=== PATIENT | male | born 1960 | race Caucasian/White ===

== ENCOUNTER 2017-02-09 05:36 | Inpatient (IN) | payer OTHER ==
[2017-01-24 12:07] VITALS: BMI 47.0
--- NOTE | 2017-01-24 12:45 | PAT Medication Instructions ---
Service Date Jan 24, 2017. Current Home Medication List Ascorbic Acid (Vitamin C), 500 MG PO BID Aspirin (Aspirin Ec), 81 MG PO QAM Bisacodyl (Dulcolax), 2 TAB PO QAM Bisacodyl (Dulcolax), 1 TAB PO HS Cholecalciferol (Vitamin D3), 1 TAB PO QAM Clonidine Hcl (Catapres), 1 TAB PO BID Cyanocobalamin (Vitamin B12 500MCG), 1,000 MCG PO QAM Cyclobenzaprine Hcl (Flexeril), 5 MG PO TID Gabapentin (Neurontin), 600 MG PO BID Levothyroxine Sodium (Levothyroxine Sodium), 1 TAB PO QAM Meclizine HCl (Meclizine 25), 25 MG PO QAM Meloxicam (Mobic), 15 MG PO QAM Metformin Hcl (Glucophage), 1,000 MG PO BID Omeprazole (Prilosec), 20 MG PO QAM Oxycodone/Acetaminophen 10MG/325MG (Percocet 10MG/325MG), 1 TAB PO Q4H PRN for N Pyridoxine (Vitamin B6), 200 MG PO QAM Sennosides-Docusate Sodium (Stool Softener), 2 TAB PO HS Zolpidem Tartrate (Zolpidem Tartrate), 1 TAB PO HS [Ferrous], 65 MG PO BID Medication Instructions For Your Scheduled Surgery Meloxicam (Mobic), 15 MG PO QAM (patient will check with surgeon for instructions) Aspirin (Aspirin Ec), 81 MG PO QAM (patient will check with surgeon for instructions) - Hold the following medications 48 hours prior to surgery: Metformin Hcl (Glucophage), 1,000 MG PO BID - Hold the following medications the morning of surgery: Ferrous 65 MG PO BID Pyridoxine (Vitamin B6), 200 MG PO QAM Cyclobenzaprine Hcl (Flexeril), 5 MG PO TID Cyanocobalamin (Vitamin B12 500MCG), 1,000 MCG PO QAM Cholecalciferol (Vitamin D3), 1 TAB PO QAM Bisacodyl (Dulcolax), 2 TAB PO QAM Ascorbic Acid (Vitamin C), 500 MG PO BID - Take the following medications the morning of surgery with a sip of water: Oxycodone/Acetaminophen 10MG/325MG (Percocet 10MG/325MG), 1 TAB PO Q4H PRN ( can take up to four hours prior to surgery if needed) Omeprazole (Prilosec), 20 MG PO QAM Levothyroxine Sodium (Levothyroxine Sodium), 1 TAB PO QAM Gabapentin (Neurontin), 600 MG PO BID Meclizine HCl (Meclizine 25), 25 MG PO QAM - Take the following medications as scheduled the night before surgery: Ferrous 65 MG PO BID Zolpidem Tartrate (Zolpidem Tartrate), 1 TAB PO HS Sennosides-Docusate Sodium (Stool Softener), 2 TAB PO HS Oxycodone/Acetaminophen 10MG/325MG (Percocet 10MG/325MG), 1 TAB PO Q4H PRN for N Gabapentin (Neurontin), 600 MG PO BID Cyclobenzaprine Hcl (Flexeril), 5 MG PO TID Clonidine Hcl (Catapres), 1 TAB PO BID (suppertime and bedtime) Bisacodyl (Dulcolax), 1 TAB PO HS Ascorbic Acid (Vitamin C), 500 MG PO BID If you have any questions please call us at [phone] or [phone] ( [place]) or [phone]
[2017-01-24 13:19] LABS: URINE APPEARANCE CLEAR (CLEAR); URINE BILIRUBIN NEG (NEG); URINE COLOR YELLOW; URINE NITRITE NEG (NEG); URINE SPECIFIC GRAVITY 1.008 (1.000-1.030); UROBILINOGEN NEG (NEG)
[2017-01-24 13:20] LABS: MANUAL MICROSCOPIC REQUIRED? NO; REVIEW REQ? NO
[2017-01-24 15:21] LABS: BUN/CREATININE RATIO 14.2 (10-20); CREATININE 1.3 mg/dl (0.60-1.40); POTASSIUM 5.1 mmol/L (3.5-5.1)
--- NOTE | 2017-01-24 15:42 | DIAGNOSTIC IMAGING REPORT ---
CHEST PREADMISSION(PA/LAT) HISTORY: Preop. COMPARISON: None. FINDINGS: The lungs are clear. Cardiac silhouette is normal in size. No pleural effusions. No pneumothorax. Low lung volumes. IMPRESSION: No acute process. Electronically signed by: Salinas Campa M.D. 01/24/2017 3:40 PM Dictated Date/Time: 01/24/2017 3:38 PM
--- NOTE | 2017-02-08 10:23 | HISTORY & PHYSICAL EXAMINATION ---
DATE OF ADMISSION: 02/09/2017 HISTORY OF PRESENT ILLNESS: The patient presents to our office with complaint of chronic back and left leg pain. It has been ongoing for 2 to 2-1/2 years. In involves the left buttock, posterior thigh to the level of the knee. Right leg is asymptomatic. He does have diabetic neuropathy from the knees distal and is on gabapentin for this. His back and left leg pain is reproducible when lying down or standing 3-4 minutes or longer. He is constantly changing positions. He is also comfortable in a recliner. He reports sitting also alleviates his symptoms. Denies changes in balance. Denies bowel or bladder dysfunction. He has trialed physical therapy without relief. He has seen Dr. Soriano but no injections were given due to the degree of his stenosis. He takes Percocet 10/325, 4 tabs a day plus Neurontin 600 mg t.i.d. plus Flexeril 5 mg a day for pain control. He also takes Mobic 15 mg a day. PAST MEDICAL HISTORY: The patient's medical history is significant for arthritis, GERD, diabetes, obesity. PAST SURGICAL HISTORY: Significant for left knee arthroscopy and gastric bypass. ALLERGIES: No known drug allergies. MEDICATIONS: Include metformin HCL 1000 mg twice a day, hydrocodone 10/325 every 4 hours, Neurontin 600 mg b.i.d., doxazosin 4 mg a day, Ambien 10 mg at bedtime, omeprazole 20 mg day, Flexeril 5 mg t.i.d., aspirin 81 mg a day, Mobic 15 mg a day, vitamin D3 1000 units twice a day, iron 325 mg t.i.d., vitamin C 500 mg t.i.d., vitamin B6 200 mg a day, vitamin B12 200 mg a day. SOCIAL HISTORY: He is on disability. He is . Denies alcohol use. Denies tobacco use. FAMILY HISTORY: Significant for arthritis, cardiovascular disease, diabetes. REVIEW OF SYSTEMS: Significant for back pain, left leg pain. PHYSICAL EXAMINATION: VITAL SIGNS: 5 feet 11, 340 pounds. HEAD, EYES, EARS, NOSE, AND THROAT: Speech appropriate. CARDIOPULMONARY: No gross abnormalities. ABDOMEN: Soft and nondistended. GENITOURINARY: Deferred. NEUROLOGIC: Cranial nerves II-XII grossly intact. MUSCULOSKELETAL: He ambulates with a widened but independent gait. He is nontender to palpation about the thoracolumbar spine. Strength is intact bilateral lower extremities. ASSESSMENT: Severe neural foraminal stenosis L3-L4, L4-L5, L5-S1 bilaterally. Severe central stenosis at L2-L3 with facet hypertrophy. PLAN: At this point in time, we have reviewed surgical intervention which would require lumbar decompression with instrumented fusion L2-L3, L3-L4, L4-L5 and L5-L1 with possible iliac bolts. We will have him see his family physician, Dr. Mayorga, preoperatively. He would like to proceed with the above-mentioned surgical planning.
[~2017-02-09] VITALS: Ht 180.3 cm; Wt 152.9 kg
[2017-02-09] VITALS (8 sets, daily range): BP systolic 122–160; BP diastolic 73–96; PULSE 96–125; TEMP 36.2–37.4; O2SAT 91–100; Ht 180.3 cm; Wt 152.9 kg
[~2017-02-09 05:36] MED LIST: ASCO1CAP3 PO; ASPI81TA28 PO; BISA-16 PO; CHOL20007 PO; CLON0.1T12 PO; CYAN500T13 PO; CYCL5TAB PO; FERROUS PO; GABA-113 PO; LEVO25TA5 PO; MECL-91 PO; MELO7.5T5 PO; METF-384 PO; OXYC-106 PO; PRLSR20 PO; PYRI100T4 PO; SENNTAB23 PO; ZOLP10TA6 PO
[2017-02-09] MEDS ORDERED: LACTATED RINGER'S 1000ML 1,000 ML IV SCH (06:00)
[2017-02-09] MEDS ORDERED: CEFAZOLIN 3000 MG/65 ML D5W IV SCH (06:00)
[2017-02-09] MEDS ORDERED: MIDAZOLAM HCL 1 MG/ML 2ML VIAL ONE (06:39)
[2017-02-09] MEDS ORDERED: FENTANYL CITRATE INJ 50 MCG/1 ML 2 ML VIAL ONE ×4 (06:39→11:06)
[2017-02-09] MEDS ORDERED: ATROPINE SULFATE 0.1 MG/ML 5ML SYR IV PRN (07:00)
[2017-02-09] MEDS ORDERED: EpHEDrine SULFATE INJ 50 MG/ML AMP IV PRN (07:00)
[2017-02-09] MEDS ORDERED: ONDANSETRON INJ 2 MG/ML 2 ML VIAL IV PRN ×2 (07:00→11:15)
[2017-02-09] MEDS ORDERED: SODIUM CHLORIDE 0.9% PF 50 ML VIAL ONE (07:17)
[2017-02-09] MEDS ORDERED: BACITRACIN 50000 UNIT VIAL ONE (07:17)
[2017-02-09] MEDS ORDERED: BUPIVACAINE/EPINEPHRINE 0.5% MPF 1:200,000 30 ML VIAL ONE (07:17)
--- NOTE | 2017-02-09 07:27 | History & Physical Bridge Note ---
H&P Re-Evaluation Bridge Note: I have examined the patient, reviewed the History & Physical and in the interval since the performance of the History & Physical I have noted the following changes of clinical significance: No changes noted
--- NOTE | 2017-02-09 07:32 | History & Physical Bridge Note ---
H&P Re-Evaluation Bridge Note: I have examined the patient, reviewed the History & Physical and in the interval since the performance of the History & Physical I have noted the following changes of clinical significance: No changes noted L2-S1 decompression fusion
[2017-02-09] MEDS ORDERED: CEFAZOLIN SOD 1 GM VIAL ONE (08:04)
[2017-02-09] MEDS ORDERED: THROMBIN FOR SOLN 20000 UNIT KIT ONE (08:13)
[2017-02-09] MEDS ORDERED: HYDROmorphone INJ 2 MG/ML SYR/VIAL ONE ×3 (08:14→11:22)
[2017-02-09] MEDS ORDERED: ALBUMIN HUMAN 5% 12.5 GM/250 ML VIAL IV ONE (09:40)
[2017-02-09] MEDS ORDERED: FLOSEAL HEMOSTATIC MATRIX 10ML TOP ONE (10:50)
[2017-02-09] MEDS ORDERED: SODIUM CHLORIDE 0.9% 1000ML 1,000 ML IV SCH (11:05)
--- NOTE | 2017-02-09 11:05 | [facility] Operative Report ---
Operative Report Operative Date Feb 09, 2017. Pre-Operative Diagnosis Severe neural foraminal stenosis L3-L4, L4-L5, L5-S1 bilaterally. Severe central stenosis at L2-L3 with facet hypertrophy. Post-Operative Diagnosis same Procedure(s) Performed domp fusion Surgeon Dr. Hernandez Hose Turner Surgeon(s) RACHAEL Bowers Estimated Blood Loss 1200 Findings stenosis Specimens none per surgeon I attest to the content of the Intraoperative Record and any orders documented therein. Any exceptions are noted below.
[2017-02-09] MEDS ORDERED: ROCURONIUM BROMIDE 10 MG/ML 5 ML VIAL ONE (11:14)
[2017-02-09] MEDS ORDERED: PROPOFOL IV EMULSION 10 MG/ML 20 ML VIAL IV ONE (11:14)
[2017-02-09] MEDS ORDERED: LIDOCAINE HCL 2% 2 ML VIAL (20MG/ML) ONE (11:14)
[2017-02-09] MEDS ORDERED: ONDANSETRON INJ 2 MG/ML 2 ML VIAL ONE ×2 (11:14→11:28)
[2017-02-09] MEDS ORDERED: DEXAMETHASONE SOD INJ 4 MG/ML VIAL ONE (11:14)
[2017-02-09 11:15] LABS: HEMATOCRIT 30.5 % (42-52)
[2017-02-09] MEDS ORDERED: MAGNESIUM HYDROXIDE SUSP 30 ML UDC PO PRN (11:15)
[2017-02-09] MEDS ORDERED: DO NOT ADMINISTER PNEUMOCOCCAL VACCINE PRN ×2 (11:15)
[2017-02-09] MEDS ORDERED: FAMOTIDINE 20 MG TAB PO PRN (11:15)
[2017-02-09] MEDS ORDERED: DO NOT ADMINISTER FLU VACCINE PRN ×3 (11:15)
[2017-02-09] MEDS ORDERED: ACETAMINOPHEN 500 MG TAB PO PRN (11:15)
[2017-02-09] MEDS ORDERED: hydrOXYzine HCL 25 MG TAB PO PRN (11:15)
[2017-02-09] MEDS ORDERED: PROMETHAZINE HCL INJ 12.5 MG in SODIUM CHLORIDE 0.9% 50ML 50 ML IV PRN (11:15)
[2017-02-09] MEDS ORDERED: LORAZEPAM INJ 0.5 MG in SYRINGE 0 ML IV PRN (11:15)
[2017-02-09] MEDS ORDERED: NALOXONE HCL 0.4 MG/1 ML VIAL/CARP IV PRN ×2 (11:15)
[2017-02-09] MEDS ORDERED: METOCLOPRAMIDE HCL INJ 5 MG/ML 2 ML VIAL IV PRN (11:15)
[2017-02-09] MEDS ORDERED: SOD PHOSPHATE/SOD BIPHOSPHATE ENEMA 132 ML BTL PR PRN (11:15)
[2017-02-09] MEDS ORDERED: BISACODYL 10 MG SUPP PR PRN (11:15)
[2017-02-09] MEDS ORDERED: ALUMINUM/MAGNESIUM SUSP 30 ML UDC PO PRN (11:15)
[2017-02-09] MEDS ORDERED: ACETAMINOPHEN IV 100 ML IV PRN (11:15)
[2017-02-09] MEDS ORDERED: LORAZEPAM 0.5 MG TAB PO PRN (11:15)
[2017-02-09] MEDS ORDERED: NEOSTIGMINE METHYLSULFATE 1 MG/ML 10ML VIAL ONE (11:28)
[2017-02-09] MEDS ORDERED: PHENYLEPHRINE 100MCG/ML 5ML SYR ONE (11:28)
[2017-02-09] MEDS ORDERED: ESMOLOL HCL 10 MG/ML 10 ML VIAL ONE (11:28)
[2017-02-09] MEDS ORDERED: EpHEDrine SULFATE 50MG/5ML SYR ONE (11:28)
[2017-02-09] MEDS ORDERED: GLYCOPYRROLATE INJ 0.2 MG/ML VIAL ONE (11:28)
[2017-02-09] MEDS ORDERED: HYDROmorphone HCL 0.5MG/ML 50 ML CASSETTE ONE (11:41)
[2017-02-09] MEDS: FENTANYL CITRATE INJ 50 MCG/1 ML 2 ML VIAL IV PRN ×3 (11:42→12:02)
--- NOTE | 2017-02-09 11:44 | OPERATIVE REPORT ---
DATE OF OPERATION: 02/09/2017 PREOPERATIVE DIAGNOSIS: Spinal stenosis. POSTOPERATIVE DIAGNOSIS: Same. PROCEDURE PERFORMED: 1. Lumbar decompression, medial facetectomy and foraminotomy L2-3, L3-4, L4-5, L5-S1. 2. Posterior spinal fusion L2-3, L3-4, L4-5, L5-S1. 3. Bilateral SI joint fusion. 4. Placement of posterior segmental instrumentation using Orthros rods and screws as well as bilateral Medicrea iliac bolts. 5. Placement of locally harvested morcellized autograft in posterior gutters. 6. Placement of Infuse collagen sponge combined with Mastergraft in the posterior lateral gutters and bilateral SI joints. SURGEON: Dr. Pardeep Hernandez. DESIGN STUDIO CONSULTANT: Laurita Nolasco PA-C. Due to the complex nature of the procedure, the entire surgery was performed with the assistant clinical director of Laurita Nolasco PA-C. The supply assistant, under direct supervision, was involved in the actual performance of all aspects of the surgical procedure including hemostasis, tissue retraction and incision, instrument management, patient positioning, and wound closure. ANESTHESIA: General. DISPOSITION: The patient awakened and taken to PACU in stable condition. HISTORY OF PATIENT'S PROBLEMS: This is a 56-year-old male who presents with above-mentioned diagnosis. After failing extensive course of nonoperative care, elected to undergo the above-mentioned procedure. Risks, benefits, pros, cons, and alternatives were outlined in detail preoperatively. OPERATION AND FINDINGS: PROCEDURE: The patient was met preoperatively and the case discussed and all questions were addressed. At that point the patient was taken back to operative suite and after undergoing successful general intubation by the department of anesthesia was placed in prone position on Art table atop Jose Armando frame. All bony prominences were well padded and the eyes were inspected to ensure there was no external pressure placed upon them. At this point, lumbar spine was prepped and draped in normal sterile fashion. Sharp dissection with the assistance of Bovie cautery performed down to and exposing the lamina and transverse processes of L2, L3, L4, L5 and bilateral sacral ala and SI joints. From a caudal to cephalad fashion, complete laminectomy of 4, 3 and 2 was performed and partial laminectomy of L5 was performed addressing severe lateral recess and foraminal stenosis. After complete decompression, pedicle screws were then placed in L2, 3, 4, 5 and S1 levels including bilateral iliac bolts and appropriate size pato locked into position. The transverse processes of L2, L3, L4, L5, and the sacral ala and bilateral SI joints were then burred to subcortical bleeding bone. Infuse collagen sponge combined with Mastergraft and locally harvested morselized autograft was placed. Crosslink locked into position, 7 flat EDITH drain inserted. Incision was closed with 1-0 Vicryl in the fascia, 2-0 Vicryl subcutaneously, 4-0 Monocryl for final skin closure. Steri-Strips and sterile dressing placed. The patient was awakened and taken to PACU in stable condition. I attest to the content of the Intraoperative Record and any orders documented therein. Any exceptio ns are noted below.
[2017-02-09] MEDS ORDERED: PHARMACY GLYCEMIC MGMT CONSULT PRN (12:03)
[2017-02-09] MEDS: HYDROmorphone INJ 1 MG/ML SYR IV PRN ×4 (12:14→12:30)
--- NOTE | 2017-02-09 12:38 | DIAGNOSTIC IMAGING REPORT ---
INTRAOPERATIVE RADIOGRAPHS CLINICAL HISTORY: L2-S1 spinal fusion. Fluoroscopy time: 48 seconds. FINDINGS: 6 spot fluoroscopic views of the lumbar spine are presented. There are changes from laminectomy and posterior fusion from L2 through S1. Interpedicular screws are present at all levels. Orthopedic hardware appears intact. Iliac bolts are in place. IMPRESSION: Intraoperative images from L2 -S1 spinal fusion with iliac bolt placement as above. Electronically signed by: Aaron Reyes M.D. 02/09/2017 12:35 PM Dictated Date/Time: 02/09/2017 12:34 PM
[2017-02-09] MEDS ORDERED: GLUCOSE 10 TABS/TUBE PO PRN (12:45)
[2017-02-09] MEDS ORDERED: DEXTROSE 50% 50 ML SYR IV PRN (12:45)
[2017-02-09] MEDS ORDERED: GLUCOSE 40% GEL 15 GM TUBE PO PRN (12:45)
[2017-02-09] MEDS ORDERED: GLUCAGON FOR INJ 1 MG VIAL SQ PRN (12:45)
--- NOTE | 2017-02-09 13:35 | Anesthesiology Progress Note ---
Anesthesia Post Op Note Date & Time Feb 09, 2017 at 13:34 Vital Signs Pain Intensity: 6 Vital Signs Past 12 Hours Date Time Temp Pulse Resp B/P Pulse Ox O2 Delivery O2 Flow Rate FiO2 02/09/17 13:01 151/83 02/09/17 12:59 104 17 02/09/17 12:59 104 17 99 02/09/17 12:56 149/86 02/09/17 12:54 102 0 02/09/17 12:54 101 0 98 02/09/17 12:53 104 17 02/09/17 12:53 104 17 100 02/09/17 12:51 139/92 02/09/17 12:50 36.0 107 16 139/92 98 Nasal Cannula 4 02/09/17 12:48 106 11 02/09/17 12:48 105 11 99 02/09/17 12:46 143/95 02/09/17 12:43 104 9 98 02/09/17 12:43 104 9 02/09/17 12:41 143/77 02/09/17 12:38 103 10 100 02/09/17 12:38 103 10 02/09/17 12:35 148/73 02/09/17 12:33 100 9 100 02/09/17 12:33 100 9 02/09/17 12:31 123/71 02/09/17 12:28 101 4 02/09/17 12:28 100 4 100 02/09/17 12:26 135/73 02/09/17 12:23 99 10 99 02/09/17 12:23 101 10 02/09/17 12:22 101 15 100 02/09/17 12:22 101 15 02/09/17 12:20 143/80 02/09/17 12:17 104 17 02/09/17 12:17 103 17 100 02/09/17 12:16 141/68 02/09/17 12:12 108 17 02/09/17 12:12 108 17 99 02/09/17 12:11 153/105 02/09/17 12:10 104 12 153/105 98 Nasal Cannula 4 02/09/17 12:07 106 16 02/09/17 12:07 106 16 95 02/09/17 12:06 174/74 02/09/17 12:02 104 12 02/09/17 12:02 104 12 95 02/09/17 12:01 160/86 02/09/17 12:00 103 12 160/86 97 Nasal Cannula 4 02/09/17 11:57 99 15 02/09/17 11:57 100 15 100 02/09/17 11:56 150/85 02/09/17 11:52 99 8 98 02/09/17 11:52 99 8 02/09/17 11:51 144/88 02/09/17 11:50 98 12 144/88 100 Mask 10 02/09/17 11:47 97 14 02/09/17 11:47 97 14 100 02/09/17 11:46 149/84 02/09/17 11:42 97 12 160/84 100 Mask 10 02/09/17 11:42 97 15 02/09/17 11:42 96 15 160/84 100 02/09/17 11:37 95 17 100 02/09/17 11:37 96 17 02/09/17 11:32 96 16 02/09/17 11:32 96 16 99 02/09/17 11:30 96 16 155/84 100 Mask 10 02/09/17 11:30 155/84 02/09/17 11:27 36.5 99 14 145/71 100 Mask 10 02/09/17 11:27 100 18 145/71 99 02/09/17 11:27 101 18 02/09/17 06:06 36.4 96 20 160/78 98 Room Air Notes Mental Status: alert / awake / arousable, participated in evaluation Pt Amnestic to Procedure: Yes Nausea / Vomiting: adequately controlled Pain: adequately controlled Airway Patency, RR, SpO2: stable & adequate BP & HR: stable & adequate Hydration State: stable & adequate Anesthetic Complications: no major complications apparent
[2017-02-09] MEDS: SODIUM CHLORIDE 0.9% 1000ML 1,000 ML IV SCH ×3 (14:21→23:55)
--- NOTE | 2017-02-09 14:56 | Progress Note ---
Progress Note Date of Service Feb 09, 2017. Progress Note Patient was seen and evaluated with FREDDIE, Patient is status post lumbar surgery by Dr Hernandez Pain is controlled with medications. Denies any chest pain, fever, chills, SOB, nausea, vomiting. On oxygen- 4 L EXAM: Gen- Morbidly obese, AAOX3, not in distress HEENT- On oxygen 4 L Neck- supple, obese Lungs- AEBE decreased, no wheezing, crackles Heart- S1, S2 normal Abdomen- soft, non tender Back S/P lumbar surgery; drain + A/P: 1. S/P LUMBAR SURGERY POD # 0- pain mx, pt/ot, wound care per primary team -Monitor H & H 2. HTN- Slightly elevated -Continue home meds-clonidine -Control pain 3. DM-2 -NIDDM -Hold metformin -ISS, accuchecks, depending on blood glucose levels- would consider low dose basal insulin 4. MORBID OBESITY Watch for sao2 and oxygen need -Currently on 4 L oxygen DVT PROPHYLAXIS Per primary team, scds/teds
--- NOTE | 2017-02-09 15:00 | Pharmacy Progress Note ---
Glycemic Control Intl Consult Date of Service Feb 09, 2017. Scope Glycemic Pharmacist consulted by Dr Hernandez on 02/09/17 for glycemic control and to write orders per [facility] inpatient glycemic control protocol Objective Weight (Kilograms): 152.90 Accuchecks BSG (last 24hrs): Test 02/09/17 06:07 02/09/17 11:49 Bedside Glucose 86 mg/dl (70-99) 167 mg/dl (70-99) Recent Pertinent Medications Outpatient Anti-diabetic Regimen: * metformin 1000mg PO BID * A1c = unknown at time of consult Risk Factors for Insulin Resistance: * Steroids: Dexamethasone 12mg intra-operatively, then 6mg IV every 8 hours x3 doses * Infection: cefazolin destiny-operatively * IVF: LR --> NSS * Recent Surgery: POD #0 lumbar laminectomy/decompression * Diet: Regular Assessment & Plan ASSESSMENT: ADA & AACE recommend a goal blood sugar range 140-180 mg/dl for the majority of critically ill & non-critically ill patients. However, more stringent targets may be selected in individual cases. Will utilize more stringent goal of 110- 140mg/dl based on patient age & comorbidities. Additionally, tighter glycemic control is warranted to facilitate wound/infection healing. * Type 2 diabetic on metformin monotherapy at home * Unknown A1c at time of consult * POD #[address] Hernandez - ATC steroids x24 hours * will utilize basal/bolus insulin at this time as steroid-induced hyperglycemia is quite likely (using a stress of 2) * will likely need decrease in basal/bolus doses when steroids are stopped * A1c on order with labs tomorrow PLAN FOR INPATIENT GLYCEMIC CONTROL: * Basal insulin: * Lantus SQ BID - 10 units if BSG is below 120mg/dL - 20 units if BSG is 120-160mg/dL - 30 units if BSG is above 160mg/dL * Bolus insulin: * NovoLog SQ AC/HS/ - CF: 15mg/dL/unit - CR: 1 unit per 5g of CHO consumed - Goal: 110-140mg/dL for post op patients * A1c ordered * add to discharge instructions * will help configure discharge recommendations * Please note that the plan above was derived based on current level of insulin resistance and hospital stress. These recommendations are appropriate for inpatient admission only. Plan of care upon discharge will need to be reassessed to avoid potential outpatient hypo/hyperglycemia. Thank you.
[2017-02-09] MEDS: HYDROmorphone HCL 0.5MG/ML 50 ML CASSETTE IV PRN ×2 (15:10→23:03)
--- NOTE | 2017-02-09 15:22 | Medical Consult ---
Consultation Date of Consultation: Feb 09, 2017. Attending Physician: Pardeep Hernandez D.O. Reason for Consultation: Postop Medical Management History of Present Illness Patient seen and examined. 56 year old male seen in consultation for postop medical management following lumbar decompression fusion by Dr. Hernandez. Patient reports feeling well. Seen eating lunch. Pain is well controlled with [employer]. Denies fevers, chills, chest pain, SOB, nausea, vomiting, diarrhea, dysuria, calf pain and edema. Reports chronic BLLE neuropathy. Last BM yesterday. Past Medical/Surgical History Medical Problems: (1) DM2 (diabetes mellitus, type 2) Status: Chronic (2) GERD (gastroesophageal reflux disease) Status: Chronic (3) HTN (hypertension) Status: Chronic (4) Hypothyroid Status: Chronic (5) Neuropathy Status: Chronic Surgical Problems: (1) H/O gastric bypass Status: Chronic (2) H/O knee surgery Status: Chronic (3) History of back surgery Status: Chronic Family History Diabetes mellitus FH: heart disease Social History Smoking Status: Never Smoker Alcohol Use: none Housing Status: lives alone Occupation Status: unemployed Allergies Coded Allergies: No Known Allergies (Unverified , 02/09/17) Current Inpatient Medications Current Inpatient Medications Medications (Trade) Dose Ordered Sig/Gregory Route Start Time Stop Time Status Last Admin Dose Admin Cefazolin Sodium 65 ml @ 100 mls/hr PREOP IV 02/09/17 06:00 02/09/17 18:00 02/09/17 07:34 100 MLS/HR Dexamethasone Sodium Phosphate 6 mg/Syringe 1.5 ml @ 1 mls/min Q8H IV 02/09/17 16:00 02/10/17 08:02 Promethazine HCl/ Sodium Chloride (Phenergan Inj/ Nss 50ml) 50.5 ml @ 202 mls/hr Q6H PRN IV 02/09/17 11:15 03/11/17 11:14 Ondansetron HCl (Zofran Inj) 4 mg Q6H PRN IV 02/09/17 11:15 03/11/17 11:14 Metoclopramide HCl (Reglan Inj) 10 mg Q6H PRN IV 02/09/17 11:15 03/11/17 11:14 Lorazepam 0.5 mg 0.5 mg Q8H PRN PO 02/09/17 11:15 03/11/17 11:14 Lorazepam/Syringe (Ativan Inj/ Syringe) 0.25 ml @ 1 mls/min Q8H PRN IV 02/09/17 11:15 03/11/17 11:14 Pneumococcal Polysaccharide Vaccine 1 ea PRN PRN N/A 02/09/17 11:15 03/11/17 11:14 Influenza Virus Vacc Triv Types A&B 1 ea PRN PRN N/A 02/09/17 11:15 03/11/17 11:14 Polyethylene (Miralax Powder Packet) 17 gm Q6 PO 02/11/17 06:00 03/13/17 05:59 Bisacodyl (Dulcolax Supp) 10 mg DAILY PRN [place] 02/09/17 11:15 03/11/17 11:14 Magnesium Hydroxide (Milk Of Magnesia Susp) 30 ml DAILY PRN PO 02/09/17 11:15 03/11/17 11:14 Hydromorphone HCl (Dilaudid Inj) 0.5 mg Q3H PRN IV 02/10/17 06:00 02/24/17 05:59 Oxycodone HCl 5-10mg prn moderate to sev... Q4H PRN PO 02/10/17 06:00 02/24/17 05:59 Cefazolin Sodium 3000 mg/Dextrose 65 ml @ 100 mls/hr Q8H IV 02/09/17 16:00 02/10/17 00:38 Sodium Chloride (Nss 1000ml) 1,000 ml @ 150 mls/hr Q6H40M IV 02/09/17 11:05 03/11/17 11:04 02/09/17 14:21 150 MLS/HR Acetaminophen 1000 mg 1,000 mg Q8H PRN PO 02/09/17 11:15 03/11/17 11:14 Acetaminophen (Ofirmev Iv) 100 ml @ 400 mls/hr Q8H PRN IV 02/09/17 11:15 03/11/17 11:14 Naloxone HCl (Narcan Inj) 0.1 mg Q5M PRN IV 02/09/17 11:15 03/11/17 11:14 Senna/Docusate Sodium (Senokot S Tab) 2 tab HS PO 02/09/17 21:00 03/11/17 20:59 Sodium Biphosphate/ Sodium Phosphate (Fleet Enema) 132 ml ONE PRN [place] 02/09/17 11:15 03/11/17 11:14 Hydroxyzine HCl (Vistaril Tab) 25 mg Q8H PRN PO 02/09/17 11:15 03/11/17 11:14 Al Hydroxide/Mg Hydroxide (Maalox Susp) 30 ml Q6H PRN PO 02/09/17 11:15 03/11/17 11:14 Famotidine (Pepcid Tab) 20 mg Q12 PRN PO 02/09/17 11:15 03/11/17 11:14 Diphenhydramine HCl (Benadryl Cap) 25 mg Q6H PRN PO 02/09/17 11:15 03/11/17 11:14 Miscellaneous Information (Discontinue [employer]) 1 ea TODAY@0600 ONCE N/A 02/10/17 06:00 02/10/17 06:01 Naloxone HCl (Narcan Inj) 0.1 mg Q5M PRN IV 02/09/17 11:15 02/10/17 06:00 Hydromorphone HCl 25 mg 25 mg PRN PRN IV 02/09/17 11:15 02/10/17 06:00 02/09/17 15:10 25 MG Sodium Chloride (Nss 1000ml) 1,000 ml @ 15 mls/hr Q24H IV 02/09/17 11:05 02/10/17 06:00 Aspirin (Ecotrin Tab) 81 mg QAM PO 02/10/17 09:00 03/12/17 08:59 Clonidine HCl (Catapres Tab) 0.1 mg BID PO 02/09/17 21:00 03/11/17 20:59 Gabapentin (Neurontin Tab) 600 mg BID PO 02/09/17 21:00 03/11/17 20:59 Levothyroxine Sodium (Synthroid Tab) 25 mcg DAILYBB PO 02/10/17 06:00 03/12/17 06:59 Meclizine HCl (Antivert Tab) 25 mg QAM PO 02/10/17 09:00 03/12/17 08:59 Pantoprazole Sodium (Protonix Tab) 40 mg QAM PO 02/10/17 09:00 03/12/17 08:59 Miscellaneous Information (Consult Glycemic Management Pharmacy) 1 ea UD PRN N/A 02/09/17 12:03 03/11/17 12:02 Hydromorphone HCl (Dilaudid Inj) 1 mg Q3H PRN IV 02/10/17 06:00 02/24/17 05:59 Insulin Glargine (Lantus Solostar Pen) SEE PROTOCOL TEXT BID SC 02/09/17 17:00 03/11/17 16:59 Insulin Aspart (novoLOG ASPART) SLIDING SCALE G... ACHS [place] 02/09/17 17:15 03/11/17 17:14 Glucose (Glucose 40% Gel) 15-30 GRAMS 15 GRAMS... UD PRN PO 02/09/17 12:45 03/11/17 12:44 Glucose (Glucose Chew Tab) 4-8 Tablets 4 Tabl... UD PRN PO 02/09/17 12:45 03/11/17 12:44 Dextrose (Dextrose 50% 50ML Syringe) 25-50ML OF 50% DW IV FOR... UD PRN IV 02/09/17 12:45 03/11/17 12:44 Glucagon (Glucagon Inj) 1 mg UD PRN SQ 02/09/17 12:45 03/11/17 12:44 Insulin Aspart (novoLOG ASPART) SLIDING SCALE G... 0000,0400 [place] 02/10/17 00:00 03/12/17 00:00 Review of Systems Constitutional: No chills, No fever Eyes: No worsening of vision ENT: No nasal symptoms Respiratory: No cough, No shortness of breath Cardiovascular: No chest pain, No edema, No palpitations Abdomen: No diarrhea, No nausea, No pain, No vomiting Musculoskeletal: No swelling Genitourinary - Male: No dysuria Neurologic: + numbness/tingling Psychiatric: No anxiety Hematologic / Lymphatic: No abnormal bleeding/bruising, No clotting problems Integumentary: No itch, No rash Allergic / Immunologic: No environmental allergies Physical Exam Date Time Temp Pulse Resp B/P Pulse Ox O2 Delivery O2 Flow Rate FiO2 02/09/17 15:13 36.6 112 19 148/85 91 Nasal Cannula 4.0 02/09/17 13:54 103 21 158/96 100 Nasal Cannula 4.0 02/09/17 13:15 36.5 103 18 155/87 100 Nasal Cannula 2.0 02/09/17 13:15 Nasal Cannula 2.0 02/09/17 13:15 Nasal Cannula 2.0 02/09/17 13:01 151/83 02/09/17 12:59 104 17 02/09/17 12:59 104 17 99 02/09/17 12:56 149/86 02/09/17 12:54 102 0 02/09/17 12:54 101 0 98 02/09/17 12:53 104 17 02/09/17 12:53 104 17 100 02/09/17 12:51 139/92 02/09/17 12:50 36.0 107 16 139/92 98 Nasal Cannula 4 02/09/17 12:48 106 11 02/09/17 12:48 105 11 99 02/09/17 12:46 143/95 02/09/17 12:43 104 9 98 02/09/17 12:43 104 9 02/09/17 12:41 143/77 02/09/17 12:38 103 10 100 02/09/17 12:38 103 10 02/09/17 12:35 148/73 02/09/17 12:33 100 9 100 02/09/17 12:33 100 9 02/09/17 12:31 123/71 02/09/17 12:28 101 4 02/09/17 12:28 100 4 100 02/09/17 12:26 135/73 02/09/17 12:23 99 10 99 02/09/17 12:23 101 10 02/09/17 12:22 101 15 100 02/09/17 12:22 101 15 02/09/17 12:20 143/80 02/09/17 12:17 104 17 02/09/17 12:17 103 17 100 02/09/17 12:16 141/68 02/09/17 12:12 108 17 02/09/17 12:12 108 17 99 02/09/17 12:11 153/105 02/09/17 12:10 104 12 153/105 98 Nasal Cannula 4 02/09/17 12:07 106 16 02/09/17 12:07 106 16 95 02/09/17 12:06 174/74 02/09/17 12:02 104 12 02/09/17 12:02 104 12 95 02/09/17 12:01 160/86 02/09/17 12:00 103 12 160/86 97 Nasal Cannula 4 02/09/17 11:57 99 15 02/09/17 11:57 100 15 100 02/09/17 11:56 150/85 02/09/17 11:52 99 8 98 02/09/17 11:52 99 8 02/09/17 11:51 144/88 02/09/17 11:50 98 12 144/88 100 Mask 10 02/09/17 11:47 97 14 02/09/17 11:47 97 14 100 02/09/17 11:46 149/84 02/09/17 11:42 97 12 160/84 100 Mask 10 02/09/17 11:42 97 15 02/09/17 11:42 96 15 160/84 100 02/09/17 11:37 95 17 100 02/09/17 11:37 96 17 02/09/17 11:32 96 16 02/09/17 11:32 96 16 99 02/09/17 11:30 96 16 155/84 100 Mask 10 02/09/17 11:30 155/84 02/09/17 11:27 36.5 99 14 145/71 100 Mask 10 02/09/17 11:27 100 18 145/71 99 02/09/17 11:27 101 18 02/09/17 06:06 36.4 96 20 160/78 98 Room Air General Appearance: + pertinent finding (Pleasant obese 56 year old male lying in bed in NAD with friend at bedside ) Head: normocephalic, atraumatic Eyes: PERRL, EOMI, sclerae normal ENT: hearing grossly normal, pharynx normal Neck: supple, no JVD Respiratory/Chest: chest non-tender, lungs clear, normal breath sounds, no respiratory distress, no accessory muscle use Cardiovascular: no edema, no gallop, no JVD, no murmur, normal peripheral pulses, + tachycardia (regular, 110s ) Abdomen/GI: normal bowel sounds, non tender, soft Genitourinary - Male: + pertinent finding (watts with pale yellow urine ) Back: + pertinent finding (drain with serosanginous output ) Extremities/Musculoskelatal: no calf tenderness, normal capillary refill, no pedal edema Neurologic/Psych: alert, oriented x 3, + pertinent finding (no focal deficits noted on gross exam ) Skin: normal color, warm/dry, no rash Lymphatic: no adenopathy Laboratory Results Last 24 Hours Test 02/09/17 06:07 02/09/17 11:10 02/09/17 11:49 Bedside Glucose 86 mg/dl 167 mg/dl Hemoglobin 10.1 g/dL Hematocrit 30.5 % Assessment & Plan LUMBAR DECOMPRESSION FUSION -POD#[address] Hernandez -Management as per ortho to include- pain control, bowel regimen, DVT prophylaxis, PT/OT, incentive spirometry, wound care -EBL 1200 ml -Follow H&H daily for postop anemia, preop was 10 -CBC, PRP, Mg daily DM2 -Update A1c -hold metformin -SSI coverage -BSG AC HS -consistent carb diet HTN -running high ? secondary to pain -Continue clonidine -pain control per ortho -monitor per routine HYPOTHYROIDISM -continue Synthroid GERD -continue PPI DVT PROPHYLAXIS: per ortho CODE STATUS: FULL CODE DISPO:per ortho Patient seen in collaboration with Dr. Rosey Snow Thank you for this consultation. We will follow the patient with you during their hospital stay. You can reach a member of the [facility] Hospitalist Team 09/05 via pager @ [phone].
[2017-02-09] MEDS: DEXAMETHASONE INJ 6 MG in SYRINGE 0 ML IV SCH ×2 (16:27→23:54)
[2017-02-09] MEDS: CEFAZOLIN IV 3,000 MG in DEXTROSE 5% 50ML 50 ML IV SCH ×2 (16:31→23:46)
[2017-02-09] MEDS: INSULIN GLARGINE SOLOSTAR 100 UNITS/ML 3 ML PEN SC SCH (18:55)
[2017-02-09] MEDS: INSULIN ASPART 100 UNITS/ML 3 ML PEN SC SCH ×3 (18:58→23:52)
[2017-02-09 21:08] LABS: HEMATOCRIT 28.2 % (42-52)
[2017-02-09] MEDS: DOCUSATE SODIUM/SENNA 50/8.6MG TAB PO SCH (21:26)
[2017-02-09] MEDS: CLONIDINE HCL 0.1 MG TAB PO SCH (21:26)
[2017-02-09] MEDS: GABAPENTIN 600 MG TAB PO SCH (21:27)
[2017-02-10 03:04] VITALS: BP 156/88; PULSE 104; TEMP 37.2; O2SAT 94
[2017-02-10] MEDS: INSULIN ASPART 100 UNITS/ML 3 ML PEN SC SCH ×5 (04:00→21:00)
[2017-02-10] MEDS ORDERED: HYDROmorphone INJ 1 MG/ML SYR IV PRN (06:00)
[2017-02-10] MEDS ORDERED: DC PCA ONE (06:00)
[2017-02-10] MEDS ORDERED: HYDROmorphone INJ 0.5 MG/0.5 ML SYR IV PRN (06:00)
[2017-02-10] MEDS: LEVOTHYROXINE 25 MCG TAB PO SCH (06:09)
[2017-02-10 06:18] LABS: COMPLETE YES; HEMATOCRIT 27.5 % (42-52); IG% 0.1 %; LYMPH ABS # 0.53 K/uL (1.2-3.4); MEAN CELL VOLUME 88.7 fL (80-100); MEAN CORPUSCULAR HGB CONC 33.8 g/dl (32-36); MEAN PLATELET VOLUME 8.8 fL (7.4-10.4); MONO % 6.2 %; NEUT % 88.7 %; PLATELET COUNT 173 K/uL (130-400); WHITE BLOOD COUNT 10.68 K/uL (4.8-10.8)
[2017-02-10] MEDS ORDERED: NURSING VERBAL MED ORDER ONE (06:30)
[2017-02-10 06:53] LABS: BUN/CREATININE RATIO 15.2 (10-20); CALCIUM 8.7 mg/dl (8.5-10.1); CREATININE 1.4 mg/dl (0.60-1.40); POTASSIUM 4.9 mmol/L (3.5-5.1)
[2017-02-10 07:22] VITALS: BP 139/76; PULSE 108; TEMP 36.9; O2SAT 95
--- NOTE | 2017-02-10 07:32 | Anesthesiology Progress Note ---
Anesthesia Post Op Note Date & Time Feb 10, 2017 at 07:31 Vital Signs Pain Intensity: 5.0 Vital Signs Past 12 Hours Date Time Temp Pulse Resp B/P Pulse Ox O2 Delivery O2 Flow Rate FiO2 02/10/17 07:22 36.9 108 22 139/76 95 Room Air 02/10/17 03:04 37.2 104 14 156/88 94 Room Air 02/09/17 23:50 Room Air 02/09/17 23:15 37.4 112 14 130/81 95 Room Air Notes Mental Status: alert / awake / arousable, participated in evaluation Pt Amnestic to Procedure: Yes Nausea / Vomiting: adequately controlled Pain: adequately controlled Airway Patency, RR, SpO2: stable & adequate BP & HR: stable & adequate Hydration State: stable & adequate Anesthetic Complications: no major complications apparent
[2017-02-10] MEDS: OXYCODONE HCL IR 5 MG TAB (IMMEDIATE RELEASE) PO PRN ×4 (07:35→21:37)
[2017-02-10] MEDS: DEXAMETHASONE INJ 6 MG in SYRINGE 0 ML IV SCH (07:35)
[2017-02-10 08:16] LABS: ESTIMATED AVERAGE GLUCOSE 100 mg/dl; HA1C FLAG Normal (Normal)
[2017-02-10] MEDS: ASPIRIN 81 MG ECTAB PO SCH (08:58)
[2017-02-10] MEDS: PANTOprazole SOD 40 MG TAB PO SCH (08:58)
[2017-02-10] MEDS: CLONIDINE HCL 0.1 MG TAB PO SCH ×2 (08:58→21:36)
[2017-02-10] MEDS: MECLIZINE HCL 25 MG TAB PO SCH (08:58)
[2017-02-10] MEDS: GABAPENTIN 600 MG TAB PO SCH ×2 (08:59→21:36)
[2017-02-10] MEDS: INSULIN GLARGINE SOLOSTAR 100 UNITS/ML 3 ML PEN SC SCH (09:06)
[2017-02-10 12:02] VITALS: BP 138/60; PULSE 100; TEMP 36.7; O2SAT 98
--- NOTE | 2017-02-10 12:12 | Progress Note ---
Medicine Progress Note Date & Time of Visit: Feb 10, 2017 at 12:04. Subjective Pt was seen and examined Sitting in chair with no distress Pt said that he feels fine Denies any chest pain, palpitation, dizziness and sob Objective Last 8 Hrs Date Time Temp Pulse Resp B/P Pulse Ox O2 Delivery O2 Flow Rate FiO2 02/10/17 07:22 36.9 108 22 139/76 95 Room Air Physical Exam: General- No distress, obese Head- atraumatic Eyes- PERRL, EOMI ENT- oropharynx clear Neck- supple, no JVD Lungs- clear to auscultation Heart- regular rhythm; no murmur Abdomen- normal bowel sounds, soft Extremities- no calf tenderness Neuro- alert, oriented x 3; PERRL, EOMI; no facial palsy Skin- warm & dry Laboratory Results: Last 24 Hours Test 02/09/17 17:01 02/09/17 20:43 02/09/17 21:01 02/09/17 23:44 Bedside Glucose 240 mg/dl 245 mg/dl 144 mg/dl Hemoglobin 9.7 g/dL Hematocrit 28.2 % Test 02/10/17 04:09 02/10/17 05:16 Bedside Glucose 140 mg/dl White Blood Count 10.68 K/uL Red Blood Count 3.10 M/uL Hemoglobin 9.3 g/dL Hematocrit 27.5 % Mean Corpuscular Volume 88.7 fL Mean Corpuscular Hemoglobin 30.0 pg Mean Corpuscular Hemoglobin Concent 33.8 g/dl Platelet Count 173 K/uL Mean Platelet Volume 8.8 fL Neutrophils (%) (Auto) 88.7 % Lymphocytes (%) (Auto) 5.0 % Monocytes (%) (Auto) 6.2 % Eosinophils (%) (Auto) 0.0 % Basophils (%) (Auto) 0.0 % Neutrophils # (Auto) 9.48 K/uL Lymphocytes # (Auto) 0.53 K/uL Monocytes # (Auto) 0.66 K/uL Eosinophils # (Auto) 0.00 K/uL Basophils # (Auto) 0.00 K/uL RDW Standard Deviation 42.1 fL RDW Coefficient of Variation 13.0 % Immature Granulocyte % (Auto) 0.1 % Immature Granulocyte # (Auto) 0.01 K/uL Sodium Level 142 mmol/L Potassium Level 4.9 mmol/L Chloride Level 109 mmol/L Carbon Dioxide Level 27 mmol/L Anion Gap 6.0 mmol/L Blood Urea Nitrogen 21 mg/dl Creatinine 1.40 mg/dl Est Creatinine Clear Calc Drug Dose 86.5 ml/min Estimated GFR () 63.7 Estimated GFR (Non- 55.0 BUN/Creatinine Ratio 15.2 Random Glucose 146 mg/dl Estimated Average Glucose 100 mg/dl Hemoglobin A1c 5.1 % Calcium Level 8.7 mg/dl Hepatitis C Antibody Screen NEG Assessment & Plan LUMBAR DECOMPRESSION FUSION -POD#[address] Hernandez -No post op complications -Incentive spirometry -Continue pain control -PT/OT -Hgb 9.3 -Continue monitor h/h DM2 -HbA1c 5.1 (02/10/17) -hold metformin -SSI coverage -BSG AC HS -consistent carb diet HTN -Continue clonidine -BP stable HYPOTHYROIDISM -continue Synthroid GERD -continue PPI DVT PROPHYLAXIS: per ortho CODE STATUS: FULL CODE DISPO:per ortho Current Inpatient Medications: Current Inpatient Medications Medications (Trade) Dose Ordered Sig/Gregory Route Start Time Stop Time Status Last Admin Dose Admin Promethazine HCl/ Sodium Chloride (Phenergan Inj/ Nss 50ml) 50.5 ml @ 202 mls/hr Q6H PRN IV 02/09/17 11:15 03/11/17 11:14 Ondansetron HCl (Zofran Inj) 4 mg Q6H PRN IV 02/09/17 11:15 03/11/17 11:14 Metoclopramide HCl (Reglan Inj) 10 mg Q6H PRN IV 02/09/17 11:15 03/11/17 11:14 Lorazepam 0.5 mg 0.5 mg Q8H PRN PO 02/09/17 11:15 03/11/17 11:14 Lorazepam/Syringe (Ativan Inj/ Syringe) 0.25 ml @ 1 mls/min Q8H PRN IV 02/09/17 11:15 03/11/17 11:14 Pneumococcal Polysaccharide Vaccine 1 ea PRN PRN N/A 02/09/17 11:15 03/11/17 11:14 Influenza Virus Vacc Triv Types A&B 1 ea PRN PRN N/A 02/09/17 11:15 03/11/17 11:14 Polyethylene (Miralax Powder Packet) 17 gm Q6 PO 02/11/17 06:00 03/13/17 05:59 Bisacodyl (Dulcolax Supp) 10 mg DAILY PRN [place] 02/09/17 11:15 03/11/17 11:14 Magnesium Hydroxide (Milk Of Magnesia Susp) 30 ml DAILY PRN PO 02/09/17 11:15 03/11/17 11:14 Hydromorphone HCl (Dilaudid Inj) 0.5 mg Q3H PRN IV 02/10/17 06:00 02/24/17 05:59 Oxycodone HCl (Roxicodone Immediate Rel Tab) 5-10mg prn moderate to sev... Q4H PRN PO 02/10/17 06:00 02/24/17 05:59 02/10/17 11:34 10 MG Acetaminophen 1000 mg 1,000 mg Q8H PRN PO 02/09/17 11:15 03/11/17 11:14 Acetaminophen (Ofirmev Iv) 100 ml @ 400 mls/hr Q8H PRN IV 02/09/17 11:15 03/11/17 11:14 Naloxone HCl (Narcan Inj) 0.1 mg Q5M PRN IV 02/09/17 11:15 03/11/17 11:14 Senna/Docusate Sodium (Senokot S Tab) 2 tab HS PO 02/09/17 21:00 03/11/17 20:59 02/09/17 21:26 2 TAB Sodium Biphosphate/ Sodium Phosphate (Fleet Enema) 132 ml ONE PRN [place] 02/09/17 11:15 03/11/17 11:14 Hydroxyzine HCl (Vistaril Tab) 25 mg Q8H PRN PO 02/09/17 11:15 03/11/17 11:14 Al Hydroxide/Mg Hydroxide (Maalox Susp) 30 ml Q6H PRN PO 02/09/17 11:15 03/11/17 11:14 Famotidine (Pepcid Tab) 20 mg Q12 PRN PO 02/09/17 11:15 03/11/17 11:14 Diphenhydramine HCl (Benadryl Cap) 25 mg Q6H PRN PO 02/09/17 11:15 03/11/17 11:14 Aspirin (Ecotrin Tab) 81 mg QAM PO 02/10/17 09:00 03/12/17 08:59 02/10/17 08:58 81 MG Clonidine HCl (Catapres Tab) 0.1 mg BID PO 02/09/17 21:00 03/11/17 20:59 02/10/17 08:58 0.1 MG Gabapentin (Neurontin Tab) 600 mg BID PO 02/09/17 21:00 03/11/17 20:59 02/10/17 08:59 600 MG Levothyroxine Sodium (Synthroid Tab) 25 mcg DAILYBB PO 02/10/17 06:00 03/12/17 06:59 02/10/17 06:09 25 MCG Meclizine HCl (Antivert Tab) 25 mg QAM PO 02/10/17 09:00 03/12/17 08:59 02/10/17 08:58 25 MG Pantoprazole Sodium (Protonix Tab) 40 mg QAM PO 02/10/17 09:00 03/12/17 08:59 02/10/17 08:58 40 MG Miscellaneous Information (Consult Glycemic Management Pharmacy) 1 ea UD PRN N/A 02/09/17 12:03 03/11/17 12:02 Hydromorphone HCl (Dilaudid Inj) 1 mg Q3H PRN IV 02/10/17 06:00 02/24/17 05:59 Insulin Glargine (Lantus Solostar Pen) SEE PROTOCOL TEXT BID SC 02/09/17 17:00 02/10/17 14:00 02/10/17 09:06 20 UNIT Insulin Aspart (novoLOG ASPART) SLIDING SCALE G... ACHS SC 02/09/17 17:15 03/11/17 17:14 02/10/17 09:04 12 UNITS Glucose (Glucose 40% Gel) 15-30 GRAMS 15 GRAMS... UD PRN PO 02/09/17 12:45 03/11/17 12:44 Glucose (Glucose Chew Tab) 4-8 Tablets 4 Tabl... UD PRN PO 02/09/17 12:45 03/11/17 12:44 Dextrose (Dextrose 50% 50ML Syringe) 25-50ML OF 50% DW IV FOR... UD PRN IV 02/09/17 12:45 03/11/17 12:44 Glucagon (Glucagon Inj) 1 mg UD PRN SQ 02/09/17 12:45 03/11/17 12:44 Insulin Aspart (novoLOG ASPART) SLIDING SCALE G... 0000,0400 [place] 02/10/17 00:00 03/12/17 00:00 02/09/17 23:52 1 UNITS
--- NOTE | 2017-02-10 14:41 | Pharmacy Progress Note ---
Glycemic Control Intl Consult Date of Service Feb 10, 2017. Scope Glycemic Pharmacist consulted by on 02/09/17 for glycemic control and to write orders per [facility] inpatient glycemic control protocol Objective Weight (Kilograms): 152.90 Accuchecks BSG (last 24hrs): Test 02/09/17 17:01 02/09/17 20:43 02/09/17 23:44 02/10/17 04:09 Bedside Glucose 240 mg/dl (70-99) 245 mg/dl (70-99) 144 mg/dl (70-99) 140 mg/dl (70-99) Test 02/10/17 05:16 02/10/17 12:09 Random Glucose 146 mg/dl (70-99) Bedside Glucose 188 mg/dl (70-99) Laboratory Data (last 24hrs) Test 02/10/17 05:16 Anion Gap 6.0 mmol/L BUN/Creatinine Ratio 15.2 Blood Urea Nitrogen 21 mg/dl Creatinine 1.40 mg/dl Hemoglobin A1c 5.1 % Potassium Level 4.9 mmol/L Sodium Level 142 mmol/L White Blood Count 10.68 K/uL Red Blood Count 3.10 M/uL Hemoglobin 9.3 g/dL Hematocrit 27.5 % Mean Corpuscular Volume 88.7 fL Mean Corpuscular Hemoglobin 30.0 pg Mean Corpuscular Hemoglobin Concent 33.8 g/dl Platelet Count 173 K/uL Mean Platelet Volume 8.8 fL Neutrophils (%) (Auto) 88.7 % Lymphocytes (%) (Auto) 5.0 % Monocytes (%) (Auto) 6.2 % Eosinophils (%) (Auto) 0.0 % Basophils (%) (Auto) 0.0 % Neutrophils # (Auto) 9.48 K/uL Lymphocytes # (Auto) 0.53 K/uL Monocytes # (Auto) 0.66 K/uL Eosinophils # (Auto) 0.00 K/uL Basophils # (Auto) 0.00 K/uL HbA1c Test 02/10/17 05:16 Hemoglobin A1c 5.1 % (4.5-5.6) Recent Pertinent Medications Outpatient Anti-diabetic Regimen: * Metformin 1gm BIDM * A1c = 5.1 % from today, 02/10/17. Risk Factors for Insulin Resistance: * Infection:Ancef destiny-op , infxn prophylaxis * Steroids: Dexamethasone 12mg intra-operatively, then 6mg IV every 8 hours x3 doses (last dose 02/10 AM) * Recent Surgery: POD1, spinal sx * Diet: DM2 Assessment & Plan ASSESSMENT: * ADA & AACE recommend a goal blood sugar range 140-180 mg/dl for the majority of critically ill & non-critically ill patients. However, more stringent targets may be selected in individual cases. 02/09/17 * Type 2 diabetic on metformin monotherapy at home * Unknown A1c at time of consult * POD #[address] Hernandez - ATC steroids x24 hours * will utilize basal/bolus insulin at this time as steroid-induced hyperglycemia is quite likely (using a stress of 2) * will likely need decrease in basal/bolus doses when steroids are stopped * A1c on order with labs tomorrow 02/10/17 * A1c of 5.1% indicates well-controlled BSGs as an outpatient, possibly overcorrecting BSGs at times. * BSGs have been well-controlled during the past 24 hours or so. Most BSGs are below 200 mg/dl. * Control of BSGs is vital at this time immediately post-op to aid in healing. * Add a Novolog check overnight to resolve potential hyperglycemia. * I am confident that this patient is highly sensitive to insulin. Therefore, pt likely has minimal insulin needs when steroids are not on board. I will begin to loosen Novolog parameters and discontinue Lantus this afternoon. * Consider restarting Metformin 1-2 days prior to discharge pending kidney function. PLAN FOR INPATIENT GLYCEMIC CONTROL: * Lantus 20 units this AM x1 then discontinue * Novolog ACHS + 02; starting 02/11 AM: * Loosen correction factor to 25 mg/dl/unit * Loosen carb ratio to 1 unit per 9 grams CHO consumed * Continue goal range of Low 110 mg/dL - High 140 mg/dL DISCHARGE RECOMMENDATIONS: * I recommend that the patient resume Metformin 1gm BIDM upon discharge. * Please note that the plan above was derived based on current level of insulin resistance and hospital stress. These recommendations are appropriate for inpatient admission only. Plan of care upon discharge will need to be reassessed to avoid potential outpatient hypo/hyperglycemia. Thank you.
[2017-02-10 15:50] VITALS: BP 139/82; PULSE 95; TEMP 36.9; O2SAT 100
--- NOTE | 2017-02-10 16:35 | PROGRESS NOTE ---
DATE: 02/10/2017 HISTORY OF PRESENT ILLNESS: Postop day 1. Back pain controlled. Leg pain improved. Vital signs stable. T-max 37.2. EDITH drained 250 mL. Hematocrit 27.5. PHYSICAL EXAMINATION: On exam, he has good strength to testing and appears comfortable. ASSESSMENT: Status post multilevel lumbar decompression and fusion. PLAN: At this time, we will continue with physical therapy, advance his bowel regimen and anticipate home next few days with home health.
[2017-02-10] MEDS: DOCUSATE SODIUM/SENNA 50/8.6MG TAB PO SCH (21:36)
[2017-02-10 23:14] VITALS: BP 147/83; PULSE 102; TEMP 37; O2SAT 97
[2017-02-11] MEDS ORDERED: INSULIN ASPART 100 UNITS/ML 3 ML PEN SC SCH (02:00)
[2017-02-11] MEDS: OXYCODONE HCL IR 5 MG TAB (IMMEDIATE RELEASE) PO PRN ×5 (02:31→21:15)
[2017-02-11] MEDS: LEVOTHYROXINE 25 MCG TAB PO SCH (05:42)
[2017-02-11] MEDS: POLYETHYLENE (MIRALAX) 17 GM PACK PO SCH ×2 (05:42→12:31)
[2017-02-11 06:32] LABS: MEAN CELL VOLUME 90.3 fL (80-100); MEAN CORPUSCULAR HEMOGLOBIN 29.6 pg (25-34); MEAN CORPUSCULAR HGB CONC 32.8 g/dl (32-36); MEAN PLATELET VOLUME 8.8 fL (7.4-10.4); PLATELET COUNT 177 K/uL (130-400); RED BLOOD COUNT 3.21 M/uL (4.7-6.1)
[2017-02-11 06:45] VITALS: BP 113/75; PULSE 115; TEMP 36.7; O2SAT 95
[2017-02-11 07:09] LABS: BUN/CREATININE RATIO 17.1 (10-20); CALCIUM 9.1 mg/dl (8.5-10.1); CREATININE 1.5 mg/dl (0.60-1.40); POTASSIUM 4.3 mmol/L (3.5-5.1)
[2017-02-11] MEDS ORDERED: SODIUM CHLORIDE 0.9% 1000ML 1,000 ML IV SCH (07:45)
[2017-02-11] MEDS: INSULIN ASPART 100 UNITS/ML 3 ML PEN SC SCH ×4 (08:05→21:00)
[2017-02-11] MEDS: GABAPENTIN 600 MG TAB PO SCH ×2 (09:16→21:13)
[2017-02-11] MEDS: ASPIRIN 81 MG ECTAB PO SCH (09:16)
[2017-02-11] MEDS: MECLIZINE HCL 25 MG TAB PO SCH (09:17)
[2017-02-11] MEDS: CLONIDINE HCL 0.1 MG TAB PO SCH ×2 (09:17→21:13)
[2017-02-11] MEDS: PANTOprazole SOD 40 MG TAB PO SCH (09:17)
[2017-02-11] MEDS ORDERED: NURSING VERBAL MED ORDER ONE (12:45)
--- NOTE | 2017-02-11 14:05 | Progress Note ---
Medicine Progress Note Date & Time of Visit: Feb 11, 2017 at 13:57. Subjective Pt was seen and examined Sitting in bed with no acute distress watching youTube from his tablet Pt said that he feels fine Pain is controlled denies any chest pain, palpitation, dizziness and sob Objective Last 8 Hrs Date Time Temp Pulse Resp B/P Pulse Ox O2 Delivery O2 Flow Rate FiO2 02/11/17 06:45 36.7 115 16 113/75 95 Room Air Physical Exam: General- No distress, obese Head- atraumatic Eyes- PERRL, EOMI ENT- oropharynx clear Neck- supple, no JVD Lungs- clear to auscultation Heart- regular rhythm; no murmur Abdomen- normal bowel sounds, soft Extremities- no calf tenderness Neuro- alert, oriented x 3; PERRL, EOMI; no facial palsy, numbness bellow knees chronic) Skin- warm & dry Laboratory Results: Last 24 Hours Test 02/10/17 17:19 02/10/17 21:18 02/11/17 02:01 02/11/17 06:01 Bedside Glucose 102 mg/dl 71 mg/dl 89 mg/dl Sodium Level 141 mmol/L Potassium Level 4.3 mmol/L Chloride Level 106 mmol/L Carbon Dioxide Level 29 mmol/L Anion Gap 6.0 mmol/L Blood Urea Nitrogen 26 mg/dl Creatinine 1.50 mg/dl Est Creatinine Clear Calc Drug Dose 80.7 ml/min Estimated GFR () 58.6 Estimated GFR (Non- 50.6 BUN/Creatinine Ratio 17.1 Random Glucose 137 mg/dl Calcium Level 9.1 mg/dl Test 02/11/17 06:07 02/11/17 06:43 02/11/17 11:51 White Blood Count 10.90 K/uL Red Blood Count 3.21 M/uL Hemoglobin 9.5 g/dL Hematocrit 29.0 % Mean Corpuscular Volume 90.3 fL Mean Corpuscular Hemoglobin 29.6 pg Mean Corpuscular Hemoglobin Concent 32.8 g/dl RDW Standard Deviation 44.2 fL RDW Coefficient of Variation 13.3 % Platelet Count 177 K/uL Mean Platelet Volume 8.8 fL Bedside Glucose 101 mg/dl 92 mg/dl Assessment & Plan LUMBAR DECOMPRESSION FUSION -POD#[address] Hernandez -No post op complications -Incentive spirometry -Continue pain control -PT/OT -Hgb 9.5 today -Continue monitor h/h ELEVATED CREATINE Possible related to low volume/post-op creatine 1.5 today will start on gentle IVF check BMP in am avoid nephrotoxic agents TACHYCARDIA Possible related to pain asymptomatic check h/h continue monitor DM2 -HbA1c 5.1 (02/10/17) -hold metformin -SSI coverage -BSG AC HS -consistent carb diet HTN -Continue clonidine -BP stable HYPOTHYROIDISM -continue Synthroid GERD -continue PPI DVT PROPHYLAXIS: per ortho CODE STATUS: FULL CODE DISPO:per ortho Current Inpatient Medications: Current Inpatient Medications Medications (Trade) Dose Ordered Sig/Gregory Route Start Time Stop Time Status Last Admin Dose Admin Promethazine HCl/ Sodium Chloride (Phenergan Inj/ Nss 50ml) 50.5 ml @ 202 mls/hr Q6H PRN IV 02/09/17 11:15 03/11/17 11:14 Ondansetron HCl (Zofran Inj) 4 mg Q6H PRN IV 02/09/17 11:15 03/11/17 11:14 Metoclopramide HCl (Reglan Inj) 10 mg Q6H PRN IV 02/09/17 11:15 03/11/17 11:14 Lorazepam 0.5 mg 0.5 mg Q8H PRN PO 02/09/17 11:15 03/11/17 11:14 Lorazepam/Syringe (Ativan Inj/ Syringe) 0.25 ml @ 1 mls/min Q8H PRN IV 02/09/17 11:15 03/11/17 11:14 Pneumococcal Polysaccharide Vaccine 1 ea PRN PRN N/A 02/09/17 11:15 03/11/17 11:14 Influenza Virus Vacc Triv Types A&B 1 ea PRN PRN N/A 02/09/17 11:15 03/11/17 11:14 Bisacodyl (Dulcolax Supp) 10 mg DAILY PRN OH 02/09/17 11:15 03/11/17 11:14 Magnesium Hydroxide (Milk Of Magnesia Susp) 30 ml DAILY PRN PO 02/09/17 11:15 03/11/17 11:14 Hydromorphone HCl (Dilaudid Inj) 0.5 mg Q3H PRN IV 02/10/17 06:00 02/24/17 05:59 Oxycodone HCl (Roxicodone Immediate Rel Tab) 5-10mg prn moderate to sev... Q4H PRN PO 02/10/17 06:00 02/24/17 05:59 02/11/17 12:59 10 MG Acetaminophen 1000 mg 1,000 mg Q8H PRN PO 02/09/17 11:15 03/11/17 11:14 Acetaminophen (Ofirmev Iv) 100 ml @ 400 mls/hr Q8H PRN IV 02/09/17 11:15 03/11/17 11:14 Naloxone HCl (Narcan Inj) 0.1 mg Q5M PRN IV 02/09/17 11:15 03/11/17 11:14 Senna/Docusate Sodium (Senokot S Tab) 2 tab HS PO 02/09/17 21:00 03/11/17 20:59 02/10/17 21:36 2 TAB Sodium Biphosphate/ Sodium Phosphate (Fleet Enema) 132 ml ONE PRN OH 02/09/17 11:15 03/11/17 11:14 Hydroxyzine HCl (Vistaril Tab) 25 mg Q8H PRN PO 02/09/17 11:15 03/11/17 11:14 Al Hydroxide/Mg Hydroxide (Maalox Susp) 30 ml Q6H PRN PO 02/09/17 11:15 03/11/17 11:14 Famotidine (Pepcid Tab) 20 mg Q12 PRN PO 02/09/17 11:15 03/11/17 11:14 Diphenhydramine HCl (Benadryl Cap) 25 mg Q6H PRN PO 02/09/17 11:15 03/11/17 11:14 Aspirin (Ecotrin Tab) 81 mg QAM PO 02/10/17 09:00 03/12/17 08:59 02/11/17 09:16 81 MG Clonidine HCl (Catapres Tab) 0.1 mg BID PO 02/09/17 21:00 03/11/17 20:59 02/11/17 09:17 0.1 MG Gabapentin (Neurontin Tab) 600 mg BID PO 02/09/17 21:00 03/11/17 20:59 02/11/17 09:16 600 MG Levothyroxine Sodium (Synthroid Tab) 25 mcg DAILYBB PO 02/10/17 06:00 03/12/17 06:59 02/11/17 05:42 25 MCG Meclizine HCl (Antivert Tab) 25 mg QAM PO 02/10/17 09:00 03/12/17 08:59 02/11/17 09:17 25 MG Pantoprazole Sodium (Protonix Tab) 40 mg QAM PO 02/10/17 09:00 03/12/17 08:59 02/11/17 09:17 40 MG Miscellaneous Information (Consult Glycemic Management Pharmacy) 1 ea UD PRN N/A 02/09/17 12:03 03/11/17 12:02 Hydromorphone HCl (Dilaudid Inj) 1 mg Q3H PRN IV 02/10/17 06:00 02/24/17 05:59 Glucose (Glucose 40% Gel) 15-30 GRAMS 15 GRAMS... UD PRN PO 02/09/17 12:45 03/11/17 12:44 Glucose (Glucose Chew Tab) 4-8 Tablets 4 Tabl... UD PRN PO 02/09/17 12:45 03/11/17 12:44 Dextrose (Dextrose 50% 50ML Syringe) 25-50ML OF 50% DW IV FOR... UD PRN IV 02/09/17 12:45 03/11/17 12:44 Glucagon (Glucagon Inj) 1 mg UD PRN SQ 02/09/17 12:45 03/11/17 12:44 Insulin Aspart SLIDING SCALE G... ACHS SC 02/11/17 08:00 03/13/17 07:59 02/11/17 12:59 3 UNITS Sodium Chloride (Nss 1000ml) 1,000 ml @ 75 mls/hr [id number] IV 02/11/17 07:45 02/11/17 21:04 02/11/17 09:23 75 MLS/HR
--- NOTE | 2017-02-11 14:09 | Discharge Instructions ---
Discharge Instructions Date of Service Feb 11, 2017. Admission Reason for Admission: Lumbar Spinal Stenosis Discharge Discharge Diagnosis / Problem: stenosis Discharge Goals Goal(s): Improve function Activity Recommendations Activity Limitations: per Instructions/Follow-up section . Instructions / Follow-Up Instructions / Follow-Up ACTIVITY RECOMMENDATIONS: SELF CARE INSTRUCTIONS AFTER THORACIC/LUMBAR FUSIONS 1. You may walk to your tolerance. It is good exercise for your legs and back. Expect some back and intermittent leg aches and pains. 2. You may perform "counter-top" level activities (make a sandwich, ehsan with a project, etc.). 3. No bending or lifting of more than 10 pounds or back twisting of any nature (roll like a log when turning in bed). 4. You may ride in a car for 20-30 minutes at a time. No driving until after your first visit with your doctor. 5. Frequent changes of position and restricting sitting to 30 minutes at a time will help limit the amount of back spasms and stiffness you may experience. 6. You may discontinue the use of ambulatory aids (cane, crutches, etc.) once your strength and confidence allow. 7. You may clothing supervisor the shower and let water strike your incision when you arrive home at least once daily. Do not take a tub bath, sit in a hot tub or go into a swimming pool until after your first recheck in the office. SPECIAL CARE INSTRUCTIONS: VERY IMPORTANT TO READ AND REVIEW A. Your surgical incision has been closed with a cosmetic suture under the skin that will dissolve in about 6 weeks. In 14 days, you can use a pair of clean scissors and cut the suture that is left outside of the skin at the ends of your incision. 1. The small skin tapes can be removed 7 days after surgery if they have not fallen off by that point. 2. You may keep the wound open to air as much as possible to promote healing after post-op day number 5 unless told otherwise by your doctor. 3. If you think the wound looks like it is becoming infected (redness or worsening drainage) and/or you are experiencing fever, chill or worsening back pain and muscle spasms, contact the office so that we may evaluate you as soon as possible. B. Complications are uncommon, but please contact us if you have any signs or symptoms of: 1. wound infection (fever higher than 102.5 degrees F, redness, separation of wound, drainage, or increasing pain from the incision) 2. blood clots in legs (pain, swelling, redness and warmth in legs) 3. urinary tract infection (fever higher than 102.5 degrees F, burning upon urination or increased frequency of urination) 4. nerve problems (inability to walk on your toes or heels, numbness, loss of bowel or bladder control) 5. any other symptoms that concern you C. Please call the office at if you have any concerns or questions about your operation or recovery. D. No smoking! Smoking drastically decreases the chance of a solid fusion. E. Do not take any anti-inflammatory medications (Indocin, Advil, Motrin, Aspirin, Naprosyn, etc.) as these may inhibit the chance of a solid fusion. Tylenol is okay to take for pain. MANAGING PAIN AFTER SPINAL SURGERY 1. Narcotic medication is intended for short-term use and will be provided for surgical pain. Surgical pain usually lasts for a period of 4-6 weeks. Narcotic medication includes Percocet, Vicodin, Darvocet, Tylenol #3 or Lortab. 2. Longer-term pain is more appropriately treated with non-narcotic medication such as Tylenol ES. 3. Muscle spasm is not appropriately treated with narcotics. Muscle relaxers such as Soma, Flexeril or Skelaxin can be used along with Tylenol ES. 4. Remember that we all live with some "aches and pains". This is not unusual or uncommon after an injury or as we get older. a. Back pain is expected and may include muscle spasms for 4 to 6 weeks after surgery. The pain should gradually improve. If the pain worsens for no apparent reason, please contact the office. b. Intermittent leg pain may also be experienced and should not be concerned about unless it worsens for no apparent reason. If so, please contact the office. 5. We will provide appropriate medication within the normal guidelines of their prescribed use. We will also be very cautious and aware of potential abuse and extended duration of patients' medication needs. a. Pain medications are for your comfort and to assist with sleep and rest so that the tissue can heal. They are not provided in order to return to normal activity and should not be used through the day. To do so or worsening pain at night can result from ongoing tissue damage and development of tolerance to the prescribed medicine. 6. Please allow 2-3 days to process refills. Prescriptions will not be mailed but must be picked up at the office. FOLLOW UP VISIT: Keep your scheduled follow-up appointment. Any questions, please call the office at . Current Hospital Diet Patient's current hospital diet: Diabetes Type 2 Diet Discharge Diet Recommended Diet: Regular Diet Procedures Procedures Performed: L2-S1 Lumbar Laminectomy, Decompression, Pedicle Screw Fixation, L2-S1 Posterolateral Fusion, Application of Jessica, Bone Morphogenetic Protein, Iliac [place] Fixation Pending Studies Studies pending at discharge: no Laboratory Results Hemoglobin A1c Test 02/10/17 05:16 Range/Units Estimated Average Glucose 100 mg/dl Hemoglobin A1c 5.1 4.5-5.6 % Medical Emergencies . Who to Call and When: Medical Emergencies: If at any time you feel your situation is an emergency, please call 911 immediately. . Non-Emergent Contact Non-Emergency issues call your: Primary Care Provider, Javascript Engineer . "Provider Documentation" section prepared by Pardeep Hernandez. . VTE Core Measure Inpt VTE Proph given/why not?: Marcela Ramos, SCD's
--- NOTE | 2017-02-11 14:27 | PROGRESS NOTE ---
DATE: 02/11/2017 SUBJECTIVE: Postop day #2. Back pain is controlled. Leg pain improved. Vital signs stable. T-max 36.7. EDITH drained 80 mL. Bowels worked this a.m. Hematocrit 29.0. OBJECTIVE: On exam, he is sitting in bed, has good strength to testing, appears comfortable. ASSESSMENT: Status post lumbar decompression and fusion. PLAN: At this time, we will continue therapy and ambulation today. Anticipate discharge home tomorrow with home health.
--- NOTE | 2017-02-11 14:49 | Pharmacy Progress Note ---
Glycemic Control: Progress Nt Date of Service Feb 11, 2017. Scope Glycemic Pharmacist consulted by Dr Hernandez on 02/09/17 for glycemic control and to write orders per [facility] inpatient glycemic control protocol. Objective Accuchecks BSG (last 24hrs): Test 02/10/17 17:19 02/10/17 21:18 02/11/17 02:01 02/11/17 06:01 Bedside Glucose 102 mg/dl (70-99) 71 mg/dl (70-99) 89 mg/dl (70-99) Random Glucose 137 mg/dl (70-99) Test 02/11/17 06:43 02/11/17 11:51 Bedside Glucose 101 mg/dl (70-99) 92 mg/dl (70-99) Laboratory Data (last 24hrs) Test 02/11/17 06:01 02/11/17 06:07 Anion Gap 6.0 mmol/L BUN/Creatinine Ratio 17.1 Blood Urea Nitrogen 26 mg/dl Creatinine 1.50 mg/dl Potassium Level 4.3 mmol/L Sodium Level 141 mmol/L White Blood Count 10.90 K/uL HbA1c: Test 02/10/17 05:16 Hemoglobin A1c 5.1 % (4.5-5.6) Recent Pertinent Medications Outpatient Anti-diabetic Regimen: * metformin 1000mg PO BID * A1c = unknown at time of consult Risk Factors for Insulin Resistance: * Steroids: Dexamethasone 12mg intra-operatively, then 6mg IV every 8 hours x3 doses COMPLETED 02/10/17 * IVF: NSS * Recent Surgery: POD #2 lumbar laminectomy/decompression * Diet: T2DM Assessment & Plan ASSESSMENT: ADA & AACE recommend a goal blood sugar range 140-180 mg/dl for the majority of critically ill & non-critically ill patients. However, more stringent targets may be selected in individual cases. Will utilize more stringent goal of 110- 140mg/dl based on patient age & comorbidities. Additionally, tighter glycemic control is warranted to facilitate wound/infection healing. * Type 2 diabetic on metformin monotherapy at home * POD #[address] Hernandez * BSGs responded nicely to basal/bolus regimen * Fasting BSG indicates that basal insulin can be stopped at this time * PO intake adequate - will resume metformin and remove prandial coverage of NovoLog at this time (continue with correctional insulin only) PLAN FOR INPATIENT GLYCEMIC CONTROL: * Basal insulin: * discontinue * Bolus insulin: * NovoLog SQ AC/HS/ - CF: 30mg/dL/unit - CR: remove - Goal: 110-140mg/dL for post op patients * Oral medications: * metformin 1000mg PO BID with meals -Serum creatinine elevated since admission - continue to monitor * A1c ordered * add to discharge instructions RECOMMENDATIONS FOR DISCHARGE: * Based on A1c, Mr. Daniels will be able to continue his home regimen at discharge. * Please note that the plan above was derived based on current level of insulin resistance and hospital stress. These recommendations are appropriate for inpatient admission only. Plan of care upon discharge will need to be reassessed to avoid potential outpatient hypo/hyperglycemia. Thank you.
[2017-02-11 15:37] VITALS: BP 128/74; PULSE 97; TEMP 37.5; O2SAT 99
[2017-02-11] MEDS: METFORMIN HCL 500 MG TAB PO SCH (18:34)
[2017-02-11] MEDS: DOCUSATE SODIUM/SENNA 50/8.6MG TAB PO SCH (21:12)
[2017-02-11 23:04] VITALS: BP 124/75; PULSE 97; TEMP 37.3; O2SAT 95
[2017-02-12] MEDS: OXYCODONE HCL IR 5 MG TAB (IMMEDIATE RELEASE) PO PRN ×2 (03:04→09:02)
[2017-02-12] MEDS: LEVOTHYROXINE 25 MCG TAB PO SCH (05:41)
[2017-02-12 06:37] LABS: HEMATOCRIT 25.5 % (42-52); MEAN CELL VOLUME 90.1 fL (80-100); MEAN CORPUSCULAR HGB CONC 33.3 g/dl (32-36); MEAN PLATELET VOLUME 8.7 fL (7.4-10.4); PLATELET COUNT 155 K/uL (130-400); RED BLOOD COUNT 2.83 M/uL (4.7-6.1); WHITE BLOOD COUNT 7.49 K/uL (4.8-10.8)
[2017-02-12 07:14] LABS: BUN/CREATININE RATIO 19.7 (10-20); CALCIUM 8.8 mg/dl (8.5-10.1); CREATININE 1.4 mg/dl (0.60-1.40)
[2017-02-12 07:45] VITALS: BP 136/81; PULSE 106; TEMP 36.7; O2SAT 98
[2017-02-12] MEDS: INSULIN ASPART 100 UNITS/ML 3 ML PEN SC SCH (08:00)
[2017-02-12] MEDS: METFORMIN HCL 500 MG TAB PO SCH (08:56)
[2017-02-12] MEDS: GABAPENTIN 600 MG TAB PO SCH (08:56)
[2017-02-12] MEDS: CLONIDINE HCL 0.1 MG TAB PO SCH (08:57)
[2017-02-12] MEDS: MECLIZINE HCL 25 MG TAB PO SCH (08:57)
[2017-02-12] MEDS: ASPIRIN 81 MG ECTAB PO SCH (08:57)
[2017-02-12] MEDS: PANTOprazole SOD 40 MG TAB PO SCH (08:57)
--- NOTE | 2017-02-12 09:09 | DISCHARGE SUMMARY ---
PRINCIPAL DIAGNOSIS: Spinal stenosis. HOSPITAL COURSE FOLLOWS: On February 09, the patient underwent lumbar decompression and fusion, tolerated this well and taken to the orthopedic floor postoperatively. Postop day #1, he was up and ambulatory, progressed to postop day #2. Postop day #3, pain well controlled. The patient's bowels are working well. Subsequently discharged home with home health. Discharge orders and instructions found on the chart for further review.
[2017-02-12 09:30] VITALS: BP 136/81; PULSE 106; TEMP 36.7; O2SAT 98
== END 2017-02-12 10:22 | disposition home health service (06) | DRG 460 ==
LOC: ENRESERVTM → ENRESERVDT → C.ACU 05:36 → C.3E 07:00
PROVIDERS: ADMIT Orthopaedic Surgery Orthopaedic Surgery of the Spine; ATTEND Orthopaedic Surgery Orthopaedic Surgery of the Spine
PROC: 0SG1071 Fusion of 2 or more Lumbar Vertebral Joints with Autologous Tissue Substitute, Posterior Approach, Posterior Column, Open Approach (ICD-10-PCS; principal; 2017-02-09 07:45)
PROC: 0SG804Z Fusion of Left Sacroiliac Joint with Internal Fixation Device, Open Approach (ICD-10-PCS; principal; 2017-02-09 07:45)
PROC: 0SG3071 Fusion of Lumbosacral Joint with Autologous Tissue Substitute, Posterior Approach, Posterior Column, Open Approach (ICD-10-PCS; principal; 2017-02-09 07:45)
PROC: 0SG704Z Fusion of Right Sacroiliac Joint with Internal Fixation Device, Open Approach (ICD-10-PCS; principal; 2017-02-09 07:45)
DX: M48.07 Spinal stenosis, lumbosacral region (principal); Z68.42 Body mass index [BMI] 45.0-49.9, adult; K21.9 Gastro-esophageal reflux disease without esophagitis; E11.9 Type 2 diabetes mellitus without complications; E66.01 Morbid (severe) obesity due to excess calories; I10 Essential (primary) hypertension; E03.9 Hypothyroidism, unspecified; Z79.82 Long term (current) use of aspirin; Z79.84 Long term (current) use of oral hypoglycemic drugs; Z79.899 Other long term (current) drug therapy; Z98.84 Bariatric surgery status